=== PATIENT | female | born 1950 | race Caucasian/White ===

== ENCOUNTER 2017-01-18 10:25 | Observation (INO) | payer BC, OTHER ==
[2017-01-18] MEDS ORDERED: NITROGLYCERIN SUBLINGUAL 1/150 0.4 MG TAB SL ONE (11:20)
[2017-01-18] MEDS ORDERED: NITROGLYCERIN 2% OINTMENT - 1GM PACKET TD ONE (11:21)
[2017-01-18] MEDS ORDERED: ACETAMINOPHEN 1000 MG/100 ML VIAL (NON FORMULARY) IVPB ONE (11:22)
--- NOTE | 2017-01-18 11:26 | PDOC ---
History of Present Illness - General History Source: Patient Exam Limitations: No Limitations <Dimitry Ramírez - Last Filed: 01/18/17 12:57> - History of Present Illness Initial Comments: General History Source: Patient Exam Limitations: No Limitations - History of Present Illness Initial Comments: 01/18/17 11:48 The patient is a 66 year old female, with a significant past medical history of left breast CA (1998), HTN, CAD s/p cardiac stents (x2), currently on aspirin and plavix, who presents to the emergency department with chest pain since 9am this morning. She describes her chest pain as a constant heaviness and localized in the midsternal region, ranging from mild to moderate and rating it a 7/10 in severity, without radiation or modifying factors, She reports that she has shortness of breath and nausea associated with her chief complaint. She notes that she took her Aspirin and Plavix today. The patient denies headache and dizziness. Denies fever, chills, vomit, diarrhea and constipation. Denies dysuria, frequency, urgency and hematuria. Allergies: None Past surgical history: Lumpectomy Social history: No alcohol, tobacco or drug use reported PMD - Dr. Aston Noe [employer] [address] Deputy Clerk - Dr. Fairchild <Dimitry Ramírez - Last Filed: 01/18/17 11:49> <Nasrin Pickering - Last Filed: 01/18/17 20:57> - General Chief Complaint: Chest Pain Stated Complaint: CHEST PAIN Time Seen by Provider: 01/18/17 11:08 Past History <Dimitry Ramírez - Last Filed: 01/18/17 12:57> - Past Medical History Anemia: Yes (MANY YRS AGO) Asthma: No Cancer: Yes (LEFT BREAST 1998) Cardiac Disorders: Yes (STENT X2) CVA: No COPD: No CHF: No Dementia: No Diabetes: No GI Disorders: Yes (PREVENTION OF REFLUX) Disorders: No HTN: Yes Hypercholesterolemia: Yes Liver Disease: No Seizures: No Thyroid Disease: No - Surgical History Abdominal Surgery: No Appendectomy: No Cardiac Surgery: Yes (stents.) Cholecystectomy: No Lung Surgery: No Neurologic Surgery: No Orthopedic Surgery: No - Psycho/Social/Smoking Cessation Hx Anxiety: No Suicidal Ideation: No Smoking Status: Yes Smoking History: Never smoked Have you smoked in the past 12 months: No Number of Cigarettes Smoked Daily: 0 Hx Alcohol Use: No Drug/Substance Use Hx: No Substance Use Type: None Hx Substance Use Treatment: No <Nasrin Pickering - Last Filed: 01/18/17 20:57> - Past Medical History Allergies/Adverse Reactions: Allergies Allergy/AdvReac Type Severity Reaction Status Date / Time No Known Allergies Allergy Verified 01/18/17 10:33 Home Medications: Ambulatory Orders Ezetimibe/Simvastatin [Vytorin 10-80 mg Tablet] 1 each PO DAILY 04/22/13 Folic Acid - 1 mg PO DAILY 04/22/13 Metoprolol Succinate [Toprol XL -] 50 mg PO DAILY 04/22/13 Ramipril [Altace] 2.5 mg PO DAILY 04/22/13 Pantoprazole Sodium [Protonix -] 20 mg PO DAILY #0 tablet.ec 04/27/13 Aspirin 81 mg PO DAILY #0 05/19/13 Clopidogrel Bisulfate [Plavix -] 75 mg PO DAILY #0 05/19/13 Oxycodone HCl/Acetaminophen [Percocet 5-325 mg Tablet] 1 - 2 tab PO Q6H #0 tablet 05/19/13 Review of Systems - Review of Systems Able to Perform ROS?: Yes Comments:: 01/18/17 11:49 12 point review of systems is as per history of present illness and otherwise negative ROS All Other Systems: Reviewed and Negative <Dimitry Ramírez - Last Filed: 01/18/17 12:57> *Physical Exam - Vital Signs Last Vital Signs Temp Pulse Resp BP Pulse Ox 97.9 F 81 19 149/81 98 01/18/17 10:33 01/18/17 11:27 01/18/17 10:33 01/18/17 10:33 01/18/17 11:27 <Dimitry Ramírez - Last Filed: 01/18/17 12:57> - Vital Signs Last Vital Signs Temp Pulse Resp BP Pulse Ox 97.9 F 76 19 149/81 100 01/18/17 10:33 01/18/17 10:33 01/18/17 10:33 01/18/17 10:33 01/18/17 10:33 - Physical Exam Comments: 01/18/17 11:22 Physical exam Last Vital Signs Temp Pulse Resp BP Pulse Ox 97.9 F 76 19 149/81 100 01/18/17 10:33 01/18/17 10:33 01/18/17 10:33 01/18/17 10:33 01/18/17 10:33 GENERAL: The patient is awake, alert, and fully oriented, and in no apparent distress. HEAD: Normal with no signs of trauma. EYES: sclera anicteric, conjunctiva are normal. ENT: Moist mucous membranes. NECK: Normal range of motion, supple LUNGS: Breath sounds equal, clear to auscultation bilaterally. No wheezes, and no crackles. HEART: Regular rate and rhythm, normal S1 and S2 without murmur, rub or gallop. ABDOMEN: Soft, nontender, normoactive bowel sounds. No guarding, no rebound. No masses appreciated. EXTREMITIES: Normal range of motion, no edema. No clubbing or cyanosis. No cords, erythema, or tenderness. NEUROLOGICAL: Cranial nerves II through XII grossly intact. Normal speech, normal gait. PSYCH: Normal mood, normal affect. SKIN: Warm, Dry, normal turgor, no rashes or lesions noted. <Nasrin Pickering - Last Filed: 01/18/17 20:57> ED Treatment Course - LABORATORY CBC & Chemistry Diagram: 01/18/17 12:10 01/18/17 12:10 - RADIOLOGY Radiograph Interpretation: 01/18/17 12:19 Chest X-Ray Reviewed by: Dr. Jeffrey Frausto Impression: No acute pathology - Medications Given in the ED: ED Medications Discontinued Medications Generic Name Dose Route Start Last Admin Trade Name Kris PRN Reason Stop Dose Admin Acetaminophen 1,000 mg 01/18/17 11:22 01/18/17 11:41 Ofirmev Injection - IVPB 01/18/17 11:23 1,000 mg ONCE ONE Administration Nitroglycerin 0.4 mg 01/18/17 11:20 01/18/17 11:41 Nitrostat - SL 01/18/17 11:21 0.4 mg ONCE ONE Administration Nitroglycerin 1 inch 01/18/17 11:21 01/18/17 11:41 Nitro-Bid 2% Paste - TD 01/18/17 11:22 1 inch ONCE ONE Administration <Dimitry Ramírez - Last Filed: 01/18/17 12:57> - LABORATORY CBC & Chemistry Diagram: 01/18/17 12:10 01/18/17 12:10 - RADIOLOGY Radiology Studies Ordered: Category Date Time Status CHEST X-RAY PORTABLE* [RAD] Stat Radiology 01/18/17 11:19 Ordered <Nasrin Pickering - Last Filed: 01/18/17 20:57> Medical Decision Making - Medical Decision Making 01/18/17 12:09 Dr. Fairchild was called regarding the patient at 11:20am. Dr. Jenkins covering. Dr. Jenkins was consulted regarding the patient at 11:47am He will come see the patient. [phone] Dr. Aston Noe was called regarding the patient at 12:55pm. Dr. Noe would like the hospitalist to admit his patient. [phone] <DesireeDimitry - Last Filed: 01/18/17 12:57> - Medical Decision Making 01/18/17 11:24 EKG Normal sinus rhythm 81, left axis deviation -6 Normal AV and IV conduction time Normal QTC Nonspecific ST-T waves When compared to the EKG of 04/26/13 Today's EKG is unchanged from the prior EKG. 66-year-old female with known CAD with 2 stents, who did take her aspirin and Plavix this morning Had the onset of chest pain at 9 AM this morning which she describes as heavy midsternal discomfort associated with some shortness of breath and nausea but no diaphoresis She rates her pain is 7 on 10, and it is been constant Pt given SL NTG and NTG paste. also given additional 162 of ASA 01/18/17 12:52 Patient is completely pain-free at this time and resting comfortably Case discussed with Dr. Jenkins, cardiology, covering Dr. Fairchild-will see patient in consultation Laboratory Results - last 24 hr 01/18/17 01/18/17 12:10 12:10 WBC 4.5 RBC 4.39 Hgb 13.3 Hct 39.8 MCV 90.6 MCHC 33.4 RDW 14.9 Plt Count 196 MPV 10.1 Sodium 141 Potassium 5.5 H D Chloride 104 Carbon Dioxide 29 Anion Gap 8 BUN 15 Creatinine 0.6 Creat Clearance w eGFR > 60 Random Glucose 95 D Calcium 9.3 Magnesium 2.0 Total Bilirubin 1.1 H AST 47 H D ALT 45 D Alkaline Phosphatase 97 Troponin I < 0.02 B-Natriuretic Peptide 173.73 H Total Protein 7.3 Albumin 4.1 Lipase 131 Chest x-ray-NAD 01/18/17 12:55 Dr. Noe's service would like the patient admitted to the hospitalist service Place in observation for serial enzymes and further cardiac w/u <Nasrin Pickering - Last Filed: 01/18/17 20:57> *DC/Admit/Observation/Transfer - Attestations Scribe Attestion: 01/18/17 11:49 Documentation prepared by Dimitry Ramírez, acting as medical surgical tech for Nasrin Pickering MD <Dimitry Ramírez - Last Filed: 01/18/17 12:57> - Discharge Dispostion Admit: Yes <Nasrin Pickering - Last Filed: 01/18/17 20:57> Diagnosis at time of Disposition: Chest pain - Referrals
[2017-01-18] MEDS ORDERED: ACETAMINOPHEN INJECTION 100 ML IVPB ONE (11:29)
[2017-01-18] MEDS ORDERED: ASPIRIN 81 MG CHEWABLE TABLETS PO ONE (11:36)
[2017-01-18] MEDS ORDERED: ASPIRIN 81 MG CHEWABLE TABLETS ONE (12:12)
[2017-01-18 12:32] LABS: MCH 30.2 pg (25.7-33.7); MCHC 33.4 g/dl (32.0-36.0); MEAN CELL VOLUME 90.6 fl (80-96); MEAN PLT VOLUME 10.1 fl (7.5-11.1); PLATELET COUNT 196 K/MM3 (134-434); RDW 14.9 % (11.6-15.6); WHITE BLOOD COUNT 4.5 K/mm3 (4.0-10.0)
[2017-01-18 12:39] LABS: ALBUMIN 4.1 g/dl (3.4-5.0); ANION GAP 8 (8-16); BILIRUBIN,TOTAL 1.1 mg/dL (0.2-1.0); CALCIUM 9.3 mg/dL (8.5-10.1); CO2 29 mmol/L (21-32); CREATININE 0.6 mg/dL (0.55-1.02); GLUCOSE,RANDOM 95 mg/dL (74-106); SGPT/ALT 45 U/L (12-78); TOT PROT 7.3 g/dl (6.4-8.2)
[2017-01-18 12:42] LABS: ALK PHOS 97 U/L (45-117); TROPONIN I < 0.02 ng/ml (0.00-0.05)
[2017-01-18 12:45] LABS: SGOT/AST 47 U/L (15-37)
--- NOTE | 2017-01-18 13:08 | PN ---
Teaching Attending Note Name of Resident: Bernabe Cheung ATTENDING PHYSICIAN STATEMENT I saw and evaluated the patient. I reviewed the resident's note and discussed the case with the resident. I agree with the resident's findings and plan as documented. SUBJECTIVE: The patient is a 66 year old female with a significant past medical history of hypertension, hyperlipidemia, coronary artery disease, remote breast cancer, who presented to the ED with five hours of constant chest pain. Initial EKG was non-ischemic. Initial troponin was negative. Chest oain was relieved in the ED after sublingual nitroglycerine and she has bene chest pain free since that time. OBJECTIVE: Vitals noted She does have reproducible chest pain Labs noted ASSESSMENT AND PLAN: -Chest pain HEART score 3, but does have significant risk factors Will JOSE D PE is on the differential Will add d-dimer to ro PE Wells score 0 and my clinical gestalt is that she is very low risk PERC negative other than age Will order TTE Cardiology to follow, consult was called by the ED No anticoagulation for now Detailed plan as per resident
--- NOTE | 2017-01-18 14:08 | CON.CARD ---
Consult Consult Specialty:: Cardiology Referred by:: Dr. Pickering Reason for Consultation:: Chest pain, h/o CAD/PCI of LAD - History of Present Illness Chief Complaint: Chest pain History of Present Illness: 66 yo female with CAD, PCI of LAD in 01/2006, PCI of LAD in-stent restenosis in , HTN, hyperlipidemia, and h/o left breast CA 1998 (lumpectomy, tamoxifen, and radiation). Patient presents to [facility] ED with chest/epigastric pain which began this AM which persisted for~ 4 hours and was relived ~ 30 minutes after getting NTG in ED today. Currently without chest pain. Denies melena, hematochezia, or hematemesis. Patient was last seen in our office by Dr. Fiarchild in 09/2014. Denies any cardiac testing since her last persantine nuclear stress test in 04/2013, which was negative for ischemia. No ischemic ECG changes. 1st trop (-) CXR unremarkable - History Source History Provided By: Patient Limitations to Obtaining History: No Limitations - Past Medical History Cardio/Vascular: Yes: CAD (PCI of LAD 01/2006, PCI of LAD ISR 01/2007), HTN, Hyperlipdemia Gastrointestinal: Yes: Other (Cholecystitis 2012) Additional Medical History: Left breast cancer 1998 (lumpectomy, tamoxifen, radiation) - Past Surgical History Past Surgical History: Yes: Cholecystectomy (04/2013) Additional Surgical History: Tonsillectomy, right shoulder mass resection 2003 - Alcohol/Substance Use Hx Alcohol Use: No History of Substance Use: reports: None - Smoking History Smoking history: Never smoked Have you smoked in the past 12 months: No Aproximately how many cigarettes per day: 0 Home Medications - Allergies Allergies/Adverse Reactions: Allergies Allergy/AdvReac Type Severity Reaction Status Date / Time No Known Allergies Allergy Verified 01/18/17 10:33 - Home Medications Home Medications: Ambulatory Orders Ezetimibe/Simvastatin [Vytorin 10-80 mg Tablet] 1 each PO DAILY 04/22/13 Folic Acid - 1 mg PO DAILY 04/22/13 Metoprolol Succinate [Toprol XL -] 50 mg PO DAILY 04/22/13 Ramipril [Altace] 2.5 mg PO DAILY 04/22/13 Pantoprazole Sodium [Protonix -] 20 mg PO DAILY #0 tablet.ec 07/12/13 Aspirin 81 mg PO DAILY #0 05/19/13 Clopidogrel Bisulfate [Plavix -] 75 mg PO DAILY #0 05/19/13 Oxycodone HCl/Acetaminophen [Percocet 5-325 mg Tablet] 1 - 2 tab PO Q6H #0 tablet 05/19/13 Family Disease History - Family Disease History Family Disease History: Heart Disease: Mother ( fro [place]/cardiac arrest at age 54) Review of Systems - Review of Systems Constitutional: reports: No Symptoms Eyes: reports: No Symptoms HENT: reports: No Symptoms Neck: reports: No Symptoms Cardiovascular: reports: Chest Pain. denies: Edema, Palpitations, Shortness of Breath Respiratory: reports: No Symptoms Gastrointestinal: reports: No Symptoms Genitourinary: reports: No Symptoms Musculoskeletal: reports: No Symptoms Neurological: reports: No Symptoms Endocrine: reports: No Symptoms Hematology/Lymphatic: reports: No Symptoms Psychiatric: reports: No Symptoms Vital Signs: Vital Signs Temperature 97.7 F 01/18/17 12:31 Pulse Rate 64 01/18/17 12:31 Respiratory Rate 18 01/18/17 12:31 Blood Pressure 101/60 01/18/17 12:31 O2 Sat by Pulse Oximetry (%) 100 01/18/17 12:31 Constitutional: Yes: Well Nourished, No Distress Eyes: Yes: Conjunctiva Clear, EOM Intact, PERRL HENT: Yes: Atraumatic, Normocephalic Respiratory: Yes: CTA Bilaterally Gastrointestinal: Yes: Normal Bowel Sounds, Soft. No: Palpable Mass, Tenderness JVD: No Carotid Bruit: No PMI: Non-Displaced Heart Sounds: Yes: S1, S2 Murmur: No: Systolic Murmur Edema: No Peripheral Pulses WNL: Yes Neurological: Yes: Alert, Oriented ...Motor Strength: WNL Psychiatric: Yes: WNL - Other Data 01/18/17 ECG: Sinus with LVH Echo: Report Reviewed (04/24/13 Echo: Normal LV size and systolic function. Trace to mild MR. Mod TR.) Imaging - Results Chest X-ray: Report Reviewed (01/18/17: No acute pulmonary process), Image Reviewed Other: Report Reviewed (05/04/13 Persantinue Myoview: No ischemia, LVEF 69%) Assessment/Plan 66 yo female with CAD, PCI of LAD in 01/2006, PCI of LAD in-stent restenosis in , HTN, hyperlipidemia, and h/o left breast CA 1998 (lumpectomy, tamoxifen, and radiation). Presented to ED with chest/epigastric pain which began this AM which persisted for~ 4 hours and was relived ~ 30 minutes after getting NTG in ED today. Currently without chest pain. Negative persantine nuclear stress test in 04/2013. No ischemic ECG changes. 1st trop (-) CXR unremarkable Suspect that her symptoms may have been GI in nature. However, given her known cardiac history, patient will need to be admitted for observation. RECS: Admit to telemetry for observation. Echocardiogram to assess LV function and structural heart disease. Trend trops. Continue metoprolol succinate 50 mg po daily, statin, aspirin 81 mg po daily, and clopidogrel 75 mg po daily. If patient remains clinically stable and serial trops are negative, patient may be discharged tomorrow with outpatient nuclear stress test in our office. My office will contact the patient to make arrangements. Please call with questions.
--- NOTE | 2017-01-18 14:24 | HP ---
CHIEF COMPLAINT:Chest pain PCP:[facility] HISTORY OF PRESENT ILLNESS: 66F with history of HTN HLD anemia CAD s/p stent x2 on aspirin and plavix states she woke up this morning and had chest pain. She states she also had shortness of breath associated with dizziness and lightheadedness. The chest pain lasted about 3 hours. She denies anything that made it better or worse. 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 She denies nausea vomiting fevers hematuria or dysuria. Denies palpitations or diaphoresis. She endorses chills. She states that ipon presentation to the ED her chest pain resolved and was asking if she could be discharged. She states she has been complaint with her medications. ER course was notable for: (1)Labs (2)CXR EKG (3)Aspirin Nitropaste Recent Travel:Denies PAST MEDICAL HISTORY: Breast cancer Social History: Smoking:Denies Alcohol:Denies Drugs: Denies Family History: Allergies No Known Allergies Allergy (Verified 01/18/17 10:33) HOME MEDICATIONS: Home Medications Medication Instructions Recorded Ezetimibe/Simvastatin [Vytorin 1 each PO DAILY 04/22/13 10-80 mg Tablet] Folic Acid - 1 mg PO DAILY 04/22/13 Metoprolol Succinate [Toprol XL -] 50 mg PO DAILY 04/22/13 Ramipril [Altace] 2.5 mg PO DAILY 04/22/13 Pantoprazole Sodium [Protonix -] 20 mg PO DAILY #0 tablet.ec 04/27/13 Aspirin 81 mg PO DAILY #0 05/19/13 Clopidogrel Bisulfate [Plavix -] 75 mg PO DAILY #0 05/19/13 Oxycodone HCl/Acetaminophen 1 - 2 tab PO Q6H #0 tablet 05/19/13 [Percocet 5-325 mg Tablet] REVIEW OF SYSTEMS CONSTITUTIONAL: Absent: fever, diaphoresis, generalized weakness, malaise, loss of appetite, weight change Present: chills HEENT: Absent: rhinorrhea, nasal congestion, throat pain, throat swelling, difficulty swallowing, mouth swelling, ear pain, eye pain, visual changes CARDIOVASCULAR: Absent: syncope, palpitations, irregular heart rate, peripheral edema Present: chest pain lightheadedness and dizziness RESPIRATORY: Absent: cough, dyspnea with exertion, orthopnea, wheezing, stridor, hemoptysis Present: shortness of breath GASTROINTESTINAL: Absent: abdominal pain, abdominal distension, nausea, vomiting, diarrhea, constipation, melena, hematochezia GENITOURINARY: Absent: dysuria, frequency, urgency, hesitancy, hematuria, flank pain, genital pain MUSCULOSKELETAL: Absent: myalgia, arthralgia, joint swelling, back pain, neck pain SKIN: Absent: rash, itching, pallor HEMATOLOGIC/IMMUNOLOGIC: Absent: easy bleeding, easy bruising, lymphadenopathy, frequent infections ENDOCRINE: Absent: unexplained weight gain, unexplained weight loss, heat intolerance, cold intolerance NEUROLOGIC: Absent: headache, focal weakness or paresthesias, unsteady gait, seizure, mental status changes, bladder or bowel incontinence PSYCHIATRIC: Absent: anxiety, depression, suicidal or homicidal ideation, hallucinations. PHYSICAL EXAMINATION GENERAL: Awake, alert, and fully oriented, in no acute distress. HEAD: Normal with no signs of trauma. EYES: Pupils equal, round and reactive to light, extraocular movements intact, sclera anicteric, conjunctiva clear. EARS, NOSE, THROAT: Moist mucous membranes. NECK: Normal range of motion, supple no JVD, or masses. LUNGS: Breath sounds equal, clear to auscultation bilaterally. No wheezes, and no crackles. No accessory muscle use. HEART: Regular rate and rhythm, normal S1 and S2 without murmur, rub or gallop. Chest tenderness on palpation of the left upper sternal border ABDOMEN: Soft, nontender, not distended, normoactive bowel sounds, no guarding, no rebound MUSCULOSKELETAL: No CVA tenderness. UPPER EXTREMITIES: warm, well-perfused. No peripheral edema. LOWER EXTREMITIES: warm, well-perfused. No calf tenderness. No peripheral edema. NEUROLOGICAL: Cranial nerves II-XII grossly intact. EKG: non ischemic CXR clear Active Medications Generic Name Dose Route Start Last Admin Trade Name Freq PRN Reason Stop Dose Admin Aspirin 81 mg 01/19/17 10:00 Asa - PO DAILY [facility] Atorvastatin Calcium 40 mg 01/18/17 22:00 Lipitor - PO HS [facility] Clopidogrel Bisulfate 75 mg 01/19/17 10:00 Plavix - PO DAILY [facility] Folic Acid 1 mg 01/19/17 10:00 Folic Acid - PO DAILY [facility] Heparin Sodium (Porcine) 5,000 unit 01/18/17 22:00 Heparin - SQ TID FLO Metoprolol Succinate 50 mg 01/19/17 10:00 Toprol Xl - PO DAILY FLO Pantoprazole Sodium 20 mg 01/19/17 10:00 Protonix - PO DAILY FLO ASSESSMENT/PLAN: This is a 66 y/o F with PMHx of HTN, HLD, and CAD who presents to ED with a three hour history of chest pain and SOB. Atypical Chest Pain -R/O MD vs Costochondritis -Place on OBS, serial Cynthia, restart Aspirin and Plavix -Cardiology consult placed -Echo ordered -NSAIDs for possible costochondritis Shortness of Breath -Resolved -Given the history of breast cancer and patient having chest pain along with SOB , will send a D-dimer to r/o PE -Wells score of 0, Perc in CAD -Aspirin and Plavix -Cardiology consult appreciated HTN -Restart Metoprolol -Hold DAVI-I due to patient's hyperkalemia, restart when resolved HLD -Restart home statin Breast cancer -No issues at present time, outpatient f/u FEN -No IV fluids -Hyperkalemia-will repeat BMP at 6pm and treat if needed -Low fat, low sodium diet PPx -Heparin subq, SCDs for DVT -Protonix for GI -No PT consult needed at this time, will assess the need for physical therapy on a regular basis Dispo: D/C tomorrow Case discussed with attending, Dr. Cortez Visit type - Emergency Visit Emergency Visit: Yes ED Registration Date: 01/18/17 Care time: The patient presented to the Emergency Department on the above date and was hospitalized for further evaluation of their emergent condition. - New Patient This patient is new to me today: Yes Date on this admission: 01/18/17 - Critical Care Critical Care patient: No
[2017-01-18] MEDS ORDERED: HYDROmorphone HCL CARPU-JECT 1 MG/1 ML DISP.SYRIN IVPUSH ONE (15:44)
[2017-01-18] MEDS ORDERED: HYDROmorphone HCL CARPU-JECT 1 MG/1 ML DISP.SYRIN ONE (16:09)
--- NOTE | 2017-01-18 17:30 | EKG ---
Test Reason : Blood Pressure : / mmHG Vent. Rate : 081 BPM Atrial Rate : 081 BPM P-R Int : 140 ms QRS Dur : 080 ms QT Int : 388 ms P-R-T Axes : 051 -06 017 degrees QTc Int : 450 ms NORMAL SINUS RHYTHM MODERATE VOLTAGE CRITERIA FOR LVH, MAY BE NORMAL VARIANT BORDERLINE ECG WHEN COMPARED WITH ECG OF 26-APR-2013 10:03, T WAVE VARIATION Confirmed by MICHAEL SCHAEFFER, LAWRENCE ([id number]) on 01/18/2017 5:30:09 PM Referred By: Confirmed By:LAWRENCE RODRIGUEZ MD
[2017-01-18 21:17] LABS: ANION GAP 8 (8-16); CALCIUM 8.6 mg/dL (8.5-10.1); CO2 26 mmol/L (21-32); CREATININE 0.6 mg/dL (0.55-1.02); GLUCOSE,RANDOM 119 mg/dL (74-106)
[2017-01-18 21:30] LABS: TROPONIN I < 0.02 ng/ml (0.00-0.05)
[2017-01-18] MEDS ORDERED: diphenhydrAMINE HCL 25 MG CAPSULE (FP) PO ONE (21:59)
[2017-01-18] MEDS ORDERED: morphine CARPU-JECT 2 MG/1 ML DISP.SYRIN IVPUSH ONE (21:59)
[2017-01-18] MEDS ORDERED: ATORVASTATIN CA 40 MG TABLET (FP) PO SCH (22:00)
[2017-01-18] MEDS ORDERED: morphine CARPU-JECT 2 MG/1 ML DISP.SYRIN ONE (22:11)
[2017-01-18] MEDS: HEPARIN NA (PORCINE) 5,000 UNITS/ML 1ML VIAL SQ SCH (22:14)
[2017-01-18] MEDS: NAPROXEN 500 MG TABLET (FP) PO SCH (22:24)
[2017-01-19] MEDS: HEPARIN NA (PORCINE) 5,000 UNITS/ML 1ML VIAL SQ SCH ×3 (06:40→14:43)
[2017-01-19 08:01] LABS: MCH 30.2 pg (25.7-33.7); MCHC 33.1 g/dl (32.0-36.0); MEAN CELL VOLUME 91.2 fl (80-96); MEAN PLT VOLUME 9.8 fl (7.5-11.1); PLATELET COUNT 141 K/MM3 (134-434); RDW 14.5 % (11.6-15.6); WHITE BLOOD COUNT 4.9 K/mm3 (4.0-10.0)
[2017-01-19] MEDS: NAPROXEN 500 MG TABLET (FP) PO SCH ×2 (08:16→10:36)
[2017-01-19 08:19] LABS: CALCIUM 8.5 mg/dL (8.5-10.1); CREATININE 0.6 mg/dL (0.55-1.02)
[2017-01-19] MEDS ORDERED: FOLIC ACID 1 MG TABLET (FP) PO SCH (10:00)
[2017-01-19] MEDS ORDERED: RAMIPRIL 2.5 MG CAPSULE (FP) PO SCH (10:00)
[2017-01-19] MEDS ORDERED: METOPROLOL SUCCINATE 50 MG TAB.SR.24H (FP) PO SCH (10:00)
[2017-01-19] MEDS ORDERED: PANTOPRAZOLE 20 MG TABLET (FP) PO SCH (10:00)
[2017-01-19] MEDS ORDERED: ASPIRIN 81 MG CHEWABLE TABLETS PO SCH (10:00)
[2017-01-19] MEDS ORDERED: CLOPIDOGREL BISULFATE 75 MG TABLET (FP) PO SCH (10:00)
[2017-01-19 13:22] VITALS: PULSE 63; TEMP 98.2
[2017-01-19 14:21] VITALS: BP 107/65
[2017-01-19] MEDS ORDERED: POLYETHYLENE GLYCOL 3350 119 GM BTL PO ONE (14:34)
--- NOTE | 2017-01-19 14:42 | DS ---
Physical Exam: SUBJECTIVE: Patient seen and examined at bedside wants to go home asymptomatic denies chest pain or shortness of breath at this time OBJECTIVE: Vital Signs Period Temp Pulse Resp BP Sys/Barry Pulse Ox Last 24 Hr 97.8 F-98.2 F 59-78 18-20 95-147/64-80 98-100 PHYSICAL EXAM GENERAL: Awake, alert, and fully oriented, in no acute distress. HEAD: Normal with no signs of trauma. EYES: Pupils equal, round and reactive to light, extraocular movements intact, sclera anicteric, conjunctiva clear. EARS, NOSE, THROAT: Moist mucous membranes. NECK: Normal range of motion, supple no JVD, or masses. LUNGS: Breath sounds equal, clear to auscultation bilaterally. No wheezes, and no crackles. No accessory muscle use. HEART: Regular rate and rhythm, normal S1 and S2 without murmur, rub or gallop. Chest tenderness on palpation of the left upper sternal border ABDOMEN: Soft, nontender, not distended, normoactive bowel sounds, no guarding, no rebound MUSCULOSKELETAL: No CVA tenderness. UPPER EXTREMITIES: warm, well-perfused. No peripheral edema. LOWER EXTREMITIES: warm, well-perfused. No calf tenderness. No peripheral edema. NEUROLOGICAL: Cranial nerves II-XII grossly intact. LABS Laboratory Results - last 24 hr 01/18/17 01/18/17 01/19/17 19:15 20:35 05:35 WBC 4.9 RBC 4.16 Hgb 12.6 Hct 38.0 MCV 91.2 MCHC 33.1 RDW 14.5 Plt Count 141 D MPV 9.8 Sodium Cancelled 143 Potassium Cancelled 3.8 D Chloride Cancelled 109 H Carbon Dioxide Cancelled 26 Anion Gap Cancelled 8 BUN Cancelled 15 Creatinine Cancelled 0.6 Random Glucose Cancelled 119 H D Calcium Cancelled 8.6 Creatine Kinase Cancelled 179 D Troponin I Cancelled < 0.02 01/19/17 01/19/17 05:35 05:35 WBC RBC Hgb Hct MCV MCHC RDW Plt Count MPV Sodium 146 H Potassium 4.1 Chloride 112 H Carbon Dioxide 25 Anion Gap 9 BUN 19 H D Creatinine 0.6 Random Glucose 84 D Calcium 8.5 Creatine Kinase Troponin I < 0.02 HOSPITAL COURSE: Date of Admission:01/18/17 Date of Discharge: 01/19/17 66F with history fo HTN HLD CAD s/p stent x2 on Aspirin and plavix presented to the ED yesterday with chest pain and shortness of breath for 3 hours. placed on telemtry for cardiac monitoring. Worked up for [place] cardiac enzymes negative x3. EKG non ischemic. Also worked up to rule out PE with D Dimer which was negative. Seen by cardiology and cleared for discharge with follow up for outpatient stress test. no arrhythmias on telemtry monitoring overnight. patient had significant chest wall tenderness and her atypical chest pain presentation is likely due to costochondritis. Minutes to complete discharge: 45 Discharge Summary Reason For Visit: CHEST PAIN Current Active Problems Atypical chest pain (Acute) Chest pain (Acute) Costochondritis (Acute) Hyperkalemia (Acute) CAD (coronary artery disease) (Chronic) Hyperlipidemia (Chronic) Hypertension (Chronic) Condition: Improved - Instructions Diet, Activity, Other Instructions: eat a low sodium low fat diet continue your home medications follow up with cardiology for an outpatient stress test follow up with your primary care doctor take over the counter aleve/naproxen 250mg twice a day for 4-5 days take the nexium you have at home with the naproxen if you have symptoms again go to the nearest emergency room Referrals: Aston Noe MD [Primary Care Provider] - 1 Week Juan Jenkins MD [Staff Physician] - 1 Week Disposition: HOME - Home Medications Comprehensive Discharge Medication List: Ambulatory Orders Ezetimibe/Simvastatin [Vytorin 10-80 mg Tablet] 1 each PO DAILY 04/22/13 Folic Acid - 1 mg PO DAILY 04/22/13 Metoprolol Succinate [Toprol XL -] 50 mg PO DAILY 04/22/13 Ramipril [Altace] 2.5 mg PO DAILY 04/22/13 Pantoprazole Sodium [Protonix -] 20 mg PO DAILY #0 tablet.ec 04/27/13 Aspirin 81 mg PO DAILY #0 05/19/13 Clopidogrel Bisulfate [Plavix -] 75 mg PO DAILY #0 05/19/13 Oxycodone HCl/Acetaminophen [Percocet 5-325 mg Tablet] 1 - 2 tab PO Q6H #0 tablet 05/19/13 Naproxen [Naprosyn -] 250 mg PO BID #10 tablet 01/19/17 This patient is new to me today: No Emergency Visit: Yes ED Registration Date: 01/18/17 Care time: The patient presented to the Emergency Department on the above date and was hospitalized for further evaluation of their emergent condition. Critical Care patient: No - Discharge Referral Referred to [facility] No
--- NOTE | 2017-01-19 15:27 | PN ---
Teaching Attending Note Name of Resident: Bernabe Cheung ATTENDING PHYSICIAN STATEMENT I saw and evaluated the patient. I reviewed the resident's note and discussed the case with the resident. I agree with the resident's findings and plan as documented. SUBJECTIVE: L sided chest pain is much better no SOB or fever OBJECTIVE: NAD CV : RRR Lungs : CTAB ext : no edema TTP over L sided chest wall ext : no edema ASSESSMENT AND PLAN: 66 y/o lady who presented with chest pain 1- atypical CP , likely due to chostoconderitis . aleve at dc , with nexium out pt stress echo reviewed. 2- slight hypernatremia . po hydration dc home
== END 2017-01-19 15:13 | disposition home or self-care (01) ==
LOC: JER 10:25 → UNDOADMOB 12:56 → JERBED 12:56 → INTOOBSV 12:56 → JERBED 14:01 → J4W 21:40
PROVIDERS: ADMIT Internal Medicine; ATTEND Internal Medicine
PROC: 3E033NZ Introduction of Analgesics, Hypnotics, Sedatives into Peripheral Vein, Percutaneous Approach (ICD-10-PCS; principal; 2017-01-18)
PROC: 3E033GC Introduction of Other Therapeutic Substance into Peripheral Vein, Percutaneous Approach (ICD-10-PCS; 2017-01-18)
DX: R07.89 Other chest pain (principal); I10 Essential (primary) hypertension; I25.10 Atherosclerotic heart disease of native coronary artery without angina pectoris; Z95.5 Presence of coronary angioplasty implant and graft; Z79.82 Long term (current) use of aspirin; Z79.01 Long term (current) use of anticoagulants; Z85.3 Personal history of malignant neoplasm of breast; Z86.2 Personal history of diseases of the blood and blood-forming organs and certain disorders involving the immune mechanism; K21.9 Gastro-esophageal reflux disease without esophagitis; E78.5 Hyperlipidemia, unspecified; E87.0 Hyperosmolality and hypernatremia; M94.0 Chondrocostal junction syndrome [Tietze]
CPT/HCPCS: 36415; 71010-TC; 80048; 80053; 82550; 82553; 83690; 83735; 83880; 84484; 85027; 85379; 93005; 93010; 93306-TC; 99285-25; G0378; J1644

== ENCOUNTER 2018-09-21 12:56 | Observation (INO) | payer OTHER ==
--- NOTE | 2018-09-21 13:16 | PDOC ---
Attending Attestation - Resident Resident Name: Brea Lima - HPI HPI: 09/21/18 14:20 Pt presents to the Ed complaining of the acute onset of severe RLQ abdominal pain. Denies fever or urinary complaints. + vomiting x 1. Denies diarrhea. also complains of non productive cough. 09/21/18 14:42 09/21/18 15:12 - Physicial Exam PE: 09/21/18 14:47 Agree with reisdent exam. Patient is alert and appears uncomfortable. Abdomen is diffusely tender, worse in the RLQ. 09/21/18 15:13 - Medical Decision Making 09/21/18 15:13 Pt presents to the ED complaining of nausea, vomiting and RLQ abdominal pain. Initial concern for diverticulitis vs appendicitis, less likely nephrolithiasis or UTI. CT shows RLL consolidation, without evidence of diverticulitis or appendicitis. Will treat with zithromax and ceftriaxone for PNA and admit for observation.
[2018-09-21] MEDS ORDERED: ONDANSETRON 4 MG/2 ML VIAL IVPB ONE ×2 (13:22→14:38)
[2018-09-21] MEDS ORDERED: morphine CARPU-JECT 4 MG/1 ML DISP.SYRIN IVPUSH ONE ×2 (13:22→14:09)
[2018-09-21] MEDS ORDERED: SODIUM CHLORIDE 1,000 ML IV STA ×2 (13:22→14:51)
--- NOTE | 2018-09-21 13:36 | PDOC ---
History of Present Illness - General Chief Complaint: Pain, Acute Stated Complaint: RIGHT ABD PAIN Time Seen by Provider: 09/21/18 13:12 History Source: Patient Exam Limitations: No Limitations - History of Present Illness Initial Comments: 09/21/18 13:33 Pt is a 68yo F with PMH of CAD s/p stent, HTN, HLD, cholecystecomy presenting to ED with complaints of R sided abdominal pain that started suddenly at 7am today. Pt said pain is on the R side of her abdomen radiates to the R back. , cannot describe the pain, has been constant. She endorses nausea and one episode of nbnb emesis. She has not had pain like this before. She tried taking 2 Advil at 10am which did not help. She denies chest pain, SOB, fevers, chills, weakness, numbness, tingling, diarrhea, constipation, blood in stools, urinary symptoms. Last BM was this morning. PMD: PMH: see hpi PSH: cholecystectomy Meds: see med rec Allergies: nkda Past History - Past Medical History Allergies/Adverse Reactions: Allergies Allergy/AdvReac Type Severity Reaction Status Date / Time No Known Allergies Allergy Verified 09/21/18 12:57 Home Medications: Ambulatory Orders Metoprolol Succinate [Toprol XL -] 50 mg PO DAILY 04/22/13 Ramipril [Altace] 2.5 mg PO DAILY 04/22/13 Aspirin 81 mg PO DAILY #0 05/19/13 Clopidogrel Bisulfate [Plavix -] 75 mg PO DAILY #0 05/19/13 Atorvastatin Ca [Lipitor] 80 mg PO HS 09/21/18 Anemia: Yes (MANY YRS AGO) Asthma: No Cancer: Yes (LEFT BREAST 1998) Cardiac Disorders: Yes (STENT X2) CVA: No COPD: No CHF: No Dementia: No Diabetes: No GI Disorders: Yes (PREVENTION OF REFLUX) Disorders: No HTN: Yes Hypercholesterolemia: Yes Liver Disease: No Seizures: No Thyroid Disease: No - Surgical History Abdominal Surgery: No Appendectomy: No Cardiac Surgery: Yes (stents.) Cholecystectomy: No Lung Surgery: No Neurologic Surgery: No Orthopedic Surgery: No - Suicide/Smoking/Psychosocial Hx Smoking Status: Yes Smoking History: Never smoked Have you smoked in the past 12 months: No Number of Cigarettes Smoked Daily: 0 Hx Alcohol Use: No Drug/Substance Use Hx: No Substance Use Type: None Hx Substance Use Treatment: No Review of Systems - Review of Systems Constitutional: No: Chills, Fever, Loss of Appetite HEENTM: No: Symptoms Reported Respiratory: No: Cough, Shortness of Breath, Hemoptysis Cardiac (ROS): No: Chest Pain, Lightheadedness, Palpitations, Syncope ABD/GI: Yes: See HPI, Nausea, Vomiting, Abdominal cramping. No: Constipated, Diarrhea, Rectal Bleeding, Tarry Stools : No: Symptoms Reported Musculoskeletal: Yes: See HPI, Back Pain. No: Joint Pain, Neck Pain Integumentary: No: Symptoms Reported Neurological: No: Symptoms reported *Physical Exam - Vital Signs Last Vital Signs Temp Pulse Resp BP Pulse Ox 98.6 F 60 17 158/80 100 09/21/18 12:57 09/21/18 12:57 09/21/18 12:57 09/21/18 12:57 09/21/18 12:57 - Physical Exam General Appearance: Yes: Nourished, Appropriately Dressed, Moderate Distress HEENT: positive: EOMI, PRESTON, Normal ENT Inspection Neck: positive: Trachea midline, Supple Respiratory/Chest: positive: Lungs Clear, Normal Breath Sounds. negative: Crackles, Rales, Rhonchi, Stridor, Wheezing Cardiovascular: positive: Regular Rhythm, Regular Rate, S1, S2. negative: Edema , JVD, Murmur Vascular Pulses: Carotid (R): 2+, Carotid (L): 2+, Dorsalis-Pedis (R): 2+, Doralis-Pedis (L): 2+ Gastrointestinal/Abdominal: positive: Normal Bowel Sounds, Soft, Tenderness ( RLQ.>RUQ). negative: Pulsatile Mass, Distended, Guarding, Rebound Musculoskeletal: negative: CVA Tenderness Extremity: positive: Normal Capillary Refill. negative: Pedal Edema, Swelling Integumentary: positive: Normal Color, Dry, Warm Neurologic: positive: stitchdowns toe former II-XII NML intact, Fully Oriented, Alert, Normal Mood/ Affect, Normal Response, Motor Strength 5/5 Moderate Sedation - Procedure Monitoring Vital Signs: Procedure Monitoring Vital Signs Temperature 98.6 F 09/21/18 12:57 Pulse Rate 60 09/21/18 12:57 Respiratory Rate 17 09/21/18 12:57 Blood Pressure 158/80 09/21/18 12:57 O2 Sat by Pulse Oximetry (%) 100 09/21/18 12:57 ED Treatment Course - LABORATORY CBC & Chemistry Diagram: 09/21/18 13:33 09/21/18 13:33 Medical Decision Making - Medical Decision Making 09/21/18 13:33 Pt is a 68yo F with PMH of CAD s/p stent, HTN, HLD, cholecystecomy presenting to ED with complaints of R sided abdominal pain that started suddenly at 7am today. Pt said pain is on the R side of her abdomen radiates to the R back. , cannot describe the pain, has been constant. She endorses nausea and one episode of nbnb emesis. She has not had pain like this before. She tried taking 2 Advil at 10am which did not help. She denies chest pain, SOB, fevers, chills, weakness, numbness, tingling, diarrhea, constipation, blood in stools, urinary symptoms. Last BM was this morning. Vitals: wnl PE: RLQ tenderness, no rebound. negative rosving and psoas. R CVA tenderness DDx includes but not limited to appendicitis, pancreatitis, colitis, nephrolithiasis, pyelonephritis, AAA, CBC, cmp, lactate, lipase, ua, ucx, CT with contrast ordered. EKG Will give IVF, morphine 2mg and zofran for nausea. Pt still in pain, given 4 morphine. Still feeling nauseous, given 4 more zofran. Pt actively vomiting in ED. Will give [address] shows small area of R lower lobe consolidation. 3mm stone in R kidney. No other pathology. -Started pt on ceftriaxone and azithromycin. All other labs wnl. UA shows blood with RBC. Most likely from passed stone. Pt is pain controlled but unable to tolerate PO. Will be admitted obs for pna and vomiting/pain control. *DC/Admit/Observation/Transfer Diagnosis at time of Disposition: Nausea PNA (pneumonia) Qualifiers: Pneumonia type: due to unspecified organism Laterality: right Lung location: lower lobe of lung Qualified Code(s): J18.1 - Lobar pneumonia, unspecified organism Hematuria Qualifiers: Hematuria type: unspecified type Qualified Code(s): R31.9 - Hematuria, unspecified Abdominal pain Qualifiers: Abdominal location: right lower quadrant Qualified Code(s): R10.31 - Right lower quadrant pain Vomiting Qualifiers: Vomiting type: unspecified Vomiting Intractability: non-intractable Nausea presence: with nausea Qualified Code(s): R11.2 - Nausea with vomiting, unspecified - Discharge Dispostion Condition at time of disposition: Good Decision to Admit order: Yes - Referrals - Patient Instructions - Post Discharge Activity
[2018-09-21] MEDS ORDERED: ONDANSETRON 4 MG/2 ML VIAL ONE ×2 (13:37→14:46)
[2018-09-21] MEDS ORDERED: morphine SULFATE 4 MG/ML VIAL ONE ×2 (13:37→14:04)
[2018-09-21 14:01] LABS: ALBUMIN 4.1 g/dl (3.5-5.0); ALK PHOS 100 U/L (32-92); ANION GAP 8 MMOL/L (8-16); BILIRUBIN,TOTAL 0.9 mg/dl (0.2-1.0); BLOOD UREA NITROGEN 23 mg/dl (7-18); CALCIUM 9.1 mg/dl (8.4-10.2); CHLORIDE 105 mmol/L (98-107); CO2 24 mmol/L (22-28); CREATININE 0.7 mg/dl (0.6-1.3); GLUCOSE,RANDOM 118 mg/dl (74-106); POTASSIUM 4.6 mmol/L (3.5-5.1); SGOT/AST 31 U/L (10-42); SGPT/ALT 31 U/L (10-40); SODIUM 137 mmol/L (136-145); TOT PROT 7.1 g/dl (6.4-8.3)
[2018-09-21 14:08] LABS: BASO % 0.2 % (0-2.0); EOS % 0.5 % (0-4.5); HEMATOCRIT 39.1 % (32.4-45.2); HEMOGLOBIN 12.8 GM/dl (10.7-15.3); LYMPH % 34.3 % (8-40); MCH 30.5 pg (25.7-33.7); MCHC 32.7 g/dl (32.0-36.0); MEAN CELL VOLUME 93.4 fl (80-96); MEAN PLT VOLUME 8.9 fl (7.5-11.1); MONO % 6.5 % (3.8-10.2); NEUT % 58.5 % (42.8-82.8); PLATELET COUNT 242 K/MM3 (134-434); RBC 4.18 M/mm3 (3.60-5.2); RDW 13.6 % (11.6-15.6); WHITE BLOOD COUNT 7.5 K/mm3 (4.0-10.8)
[2018-09-21 14:09] LABS: URINE APPEARANCE Clear; URINE BILIRUBIN Negative (NEGATIVE); URINE COLOR Yellow; URINE GLUCOSE (UA) Negative (NEGATIVE); URINE KETONE Negative (NEGATIVE); URINE LEUK ESTERASE Negative (NEGATIVE); URINE NITRITE Negative (NEGATIVE); URINE PROTEIN Trace (NEGATIVE); URINE UROBILINOGEN 0.2 (0.2-1.0)
[2018-09-21 14:34] LABS: ACTIVATED PTT 24.8 SECONDS (25.2-36.5)
[2018-09-21 14:37] LABS: URINE RBC 20-40 /hpf (0-3)
[2018-09-21 14:38] LABS: EPI CELLS 2+ /HPF; URINE MUCUS 2+
[2018-09-21 14:38] LABS: INR 1.11 (0.82-1.09); PROTHROMBIN TIME (PATIENT) 12.4 SEC (10.2-13.0)
[2018-09-21 14:43] LABS: URINE BACTERIA 2+ /hpf (NEGATIVE)
[2018-09-21] MEDS ORDERED: CEFTRIAXONE 1 GM in DEXTROSE 5%-WATER - 100 ML IVPB ONE (15:03)
[2018-09-21 15:04] LABS: N-TERMINAL BNP 114.3 pg/ml (5-125)
[2018-09-21] MEDS ORDERED: METOCLOPRAMIDE HCL INJECTION 10 MG/2 ML VIAL IVPUSH ONE (15:10)
[2018-09-21] MEDS ORDERED: METOCLOPRAMIDE HCL INJECTION 10 MG/2 ML VIAL ONE (15:11)
[2018-09-21] MEDS ORDERED: cefTRIAXone SODIUM 1 GM VIAL ONE (15:18)
[2018-09-21] MEDS ORDERED: AZITHROMYCIN 500 MG VIAL IVPB ONE (15:18)
[2018-09-21] MEDS: AZITHROMYCIN IVPB 500 MG in DEXTROSE 5%-WATER - 250 ML IVPB ONE ×2 (15:20→15:55)
--- NOTE | 2018-09-21 16:01 | HP ---
CHIEF COMPLAINT: Abdominal pain PCP: Dr. Noe HISTORY OF PRESENT ILLNESS: This is a 68-year-old female with HTN, HLD, left breast ca s/p lumpectomy and CAD s/p stents who presented to the ED today with sudden onset of RLQ pain and nausea/vomiting at 7a today. She denies constipation/diarrhea, fevers/chills, dysuria, and hematurio. She does report 2- 3 weeks of cough productive of fritz/green sputum prior to this episode. 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 Smoking: Quit 35 yrs ago Alcohol: Rarely Drugs: None Allergies No Known Allergies Allergy (Verified 09/21/18 12:57) HOME MEDICATIONS: Home Medications Medication Instructions Recorded Metoprolol Succinate [Toprol XL -] 50 mg PO DAILY 04/22/13 Ramipril [Altace] 2.5 mg PO DAILY 04/22/13 Aspirin 81 mg PO DAILY #0 05/19/13 Clopidogrel Bisulfate [Plavix -] 75 mg PO DAILY #0 05/19/13 Atorvastatin Ca [Lipitor] 80 mg PO HS 09/21/18 REVIEW OF SYSTEMS CONSTITUTIONAL: Absent: fever, chills, diaphoresis, generalized weakness, malaise, loss of appetite, weight change HEENT: Absent: rhinorrhea, nasal congestion, throat pain, throat swelling, difficulty swallowing, mouth swelling, ear pain, eye pain, visual changes CARDIOVASCULAR: Absent: chest pain, syncope, palpitations, irregular heart rate, lightheadedness , peripheral edema RESPIRATORY: Cough productive of green/fritz sputum x 2-3 wks Absent: shortness of breath, dyspnea with exertion, orthopnea, wheezing, stridor , hemoptysis GASTROINTESTINAL: RLQ pain, vomiting Absent: diarrhea, constipation, melena, hematochezia GENITOURINARY: Absent: dysuria, frequency, urgency, hesitancy, hematuria, flank pain, genital pain MUSCULOSKELETAL: Absent: myalgia, arthralgia, joint swelling, back pain, neck pain SKIN: Absent: rash, itching, pallor HEMATOLOGIC/IMMUNOLOGIC: Absent: easy bleeding, easy bruising, lymphadenopathy, frequent infections ENDOCRINE: Absent: unexplained weight gain, unexplained weight loss, heat intolerance, cold intolerance NEUROLOGIC: Absent: headache, focal weakness or paresthesias, dizziness, unsteady gait, seizure, mental status changes, bladder or bowel incontinence PSYCHIATRIC: Absent: anxiety, depression, suicidal or homicidal ideation, hallucinations. PHYSICAL EXAMINATION Vital Signs - 24 hr 09/21/18 12:57 Temperature 98.6 F Pulse Rate 60 Respiratory 17 Rate Blood Pressure 158/80 O2 Sat by Pulse 100 Oximetry (%) GENERAL: Awake, alert, and fully oriented, in no acute distress. HEAD: Normal with no signs of trauma. EYES: Pupils equal, round and reactive to light, extraocular movements intact, sclera anicteric, conjunctiva clear. No lid lag. EARS, NOSE, THROAT: Ears normal, nares patent, oropharynx clear without exudates. Moist mucous membranes. NECK: Normal range of motion, supple without lymphadenopathy, JVD, or masses. LUNGS: Breath sounds equal, clear to auscultation bilaterally. No wheezes, and no crackles. No accessory muscle use. HEART: Regular rate and rhythm, normal S1 and S2 without murmur, rub or gallop. ABDOMEN: Soft, tender in RLQ and right CVA, not distended, normoactive bowel sounds, no guarding, no rebound, no masses. No hepatomegaly or splenomegaly. MUSCULOSKELETAL: Normal range of motion at all joints. No bony deformities or tenderness. No CVA tenderness. UPPER EXTREMITIES: 2+ pulses, warm, well-perfused. No cyanosis. No clubbing. No peripheral edema. LOWER EXTREMITIES: 2+ pulses, warm, well-perfused. No calf tenderness. No peripheral edema. NEUROLOGICAL: Cranial nerves II-XII intact. Normal speech. Gait not observed. PSYCHIATRIC: Cooperative. Good eye contact. Appropriate mood and affect. SKIN: Warm, dry, normal turgor, no rashes or lesions noted, normal capillary refill. Laboratory Results - last 24 hr 09/21/18 09/21/18 09/21/18 13:15 13:15 13:33 WBC 7.5 RBC 4.18 Hgb 12.8 Hct 39.1 MCV 93.4 MCH 30.5 MCHC 32.7 RDW 13.6 Plt Count 242 MPV 8.9 Absolute Neuts (auto) 4.4 Neutrophils % 58.5 Lymphocytes % 34.3 Monocytes % 6.5 Eosinophils % 0.5 Basophils % 0.2 PT with INR INR PTT (Actin FS) Sodium Potassium Chloride Carbon Dioxide Anion Gap BUN Creatinine Creat Clearance w eGFR Random Glucose Lactic Acid Calcium Total Bilirubin AST ALT Alkaline Phosphatase Troponin I B-Natriuretic Peptide Total Protein Albumin Lipase 197 Urine Color Yellow Urine Appearance Clear Urine pH 7.0 Ur Specific [place] 1.025 Urine Protein Trace Urine Glucose (UA) Negative Urine Ketones Negative Urine Blood 3+ H Urine Nitrite Negative Urine Bilirubin Negative Urine Urobilinogen 0.2 Ur Leukocyte Esterase Negative Urine RBC 20-40 Urine WBC 2-5 Ur Epithelial Cells 2+ Urine Bacteria 2+ Urine Mucus 2+ 09/21/18 09/21/18 09/21/18 13:33 13:33 13:33 WBC RBC Hgb Hct MCV MCH MCHC RDW Plt Count MPV Absolute Neuts (auto) Neutrophils % Lymphocytes % Monocytes % Eosinophils % Basophils % PT with INR 12.4 INR 1.11 PTT (Actin FS) 24.8 L Sodium 137 Potassium 4.6 Chloride 105 Carbon Dioxide 24 Anion Gap 8 BUN 23 H Creatinine 0.7 Creat Clearance w eGFR > 60 Random Glucose 118 H Lactic Acid Calcium 9.1 Total Bilirubin 0.9 AST 31 D ALT 31 D Alkaline Phosphatase 100 H Troponin I < 0.03 B-Natriuretic Peptide 114.3 Total Protein 7.1 Albumin 4.1 Lipase Urine Color Urine Appearance Urine pH Ur Specific [place] Urine Protein Urine Glucose (UA) Urine Ketones Urine Blood Urine Nitrite Urine Bilirubin Urine Urobilinogen Ur Leukocyte Esterase Urine RBC Urine WBC Ur Epithelial Cells Urine Bacteria Urine Mucus 09/21/18 13:33 WBC RBC Hgb Hct MCV MCH MCHC RDW Plt Count MPV Absolute Neuts (auto) Neutrophils % Lymphocytes % Monocytes % Eosinophils % Basophils % PT with INR INR PTT (Actin FS) Sodium Potassium Chloride Carbon Dioxide Anion Gap BUN Creatinine Creat Clearance w eGFR Random Glucose Lactic Acid 1.5 Calcium Total Bilirubin AST ALT Alkaline Phosphatase Troponin I B-Natriuretic Peptide Total Protein Albumin Lipase Urine Color Urine Appearance Urine pH Ur Specific [place] Urine Protein Urine Glucose (UA) Urine Ketones Urine Blood Urine Nitrite Urine Bilirubin Urine Urobilinogen Ur Leukocyte Esterase Urine RBC Urine WBC Ur Epithelial Cells Urine Bacteria Urine Mucus ASSESSMENT/PLAN: 68-year-old female with RLQ pain, likely secondary to passed ureteral calculus, and CAP. Problem List - Problem (1) Abdominal pain Assessment/Plan: -Suspect secondary to passed ureteral calculus with microscopic hematuria, stone within kidney on CT, and improving pain -Toradol 15mg q6h prn pain -Serial abdominal exams Code(s): R10.9 - UNSPECIFIED ABDOMINAL PAIN Qualifiers: Abdominal location: right lower quadrant Qualified Code(s): R10.31 - Right lower quadrant pain (2) Vomiting Assessment/Plan: -Unrelieved by Zofran 4mg IVPB x 2 doses and Reglan 10mg IVPB x 1 -Ativan 0.5mg IVP x 1 -Continue Zofran 4mg q6h prn Code(s): R11.10 - VOMITING, UNSPECIFIED Qualifiers: Vomiting type: unspecified Vomiting Intractability: non-intractable Nausea presence: with nausea Qualified Code(s): R11.2 - Nausea with vomiting, unspecified (3) Community acquired pneumonia Assessment/Plan: -Ceftriaxone 1g IVPB and azithromycin 500mg IVPB given in ED -Continue Ceftriaxone 1g, azithro 250mg daily Code(s): J18.9 - PNEUMONIA, UNSPECIFIED ORGANISM (4) CAD (coronary artery disease) Assessment/Plan: -Continue BB, statin, Plavix, ASA Code(s): I25.10 - ATHSCL HEART DISEASE OF [place] CORONARY ARTERY W/O ANG PCTRS (5) Hyperlipidemia Assessment/Plan: -Continue home atorvastatin 80mg hs Code(s): E78.5 - HYPERLIPIDEMIA, UNSPECIFIED (6) Hypertension Assessment/Plan: -Slightly above goal -Continue Toprol XL 50mg daily, Altace 2.5mg daily -Re-assess when pain is controlled Code(s): I10 - ESSENTIAL (PRIMARY) HYPERTENSION (7) DVT prophylaxis Assessment/Plan: -Low risk -Early ambulation Code(s): [id number] - Visit type - Emergency Visit Emergency Visit: Yes Care time: The patient presented to the Emergency Department on the above date and was hospitalized for further evaluation of their emergent condition. - New Patient This patient is new to me today: Yes Date on this admission: 09/21/18 - Critical Care Critical Care patient: No
[2018-09-21] MEDS ORDERED: KETOROLAC TROMETHAMINE 15 MG/ML VIAL IVPUSH PRN (16:25)
[2018-09-21] MEDS ORDERED: LORazepam 2 MG/ML SDV VIAL IVPUSH ONE (16:32)
[2018-09-21] MEDS ORDERED: diphenhydrAMINE HCL 25 MG CAPSULE (FP) PO PRN ×3 (16:38→22:00)
[2018-09-21] MEDS ORDERED: SODIUM CHLORIDE 1,000 ML IV SCH (16:45)
[2018-09-21 17:09] VITALS: BMI 29.0
[2018-09-21] MEDS ORDERED: ONDANSETRON 4 MG/2 ML VIAL IVPUSH PRN (18:00)
[2018-09-21] MEDS ORDERED: MELATONIN 5 MG TABLETS PO ONE (23:15)
[2018-09-22 06:32] VITALS: BP 96/53; PULSE 59; TEMP 97.7
[2018-09-22 08:23] LABS: BASO % 0.4 % (0-2.0); EOS % 0.7 % (0-4.5); HEMATOCRIT 34.3 % (32.4-45.2); HEMOGLOBIN 11.2 GM/dl (10.7-15.3); LYMPH % 41.3 % (8-40); MCH 30.5 pg (25.7-33.7); MCHC 32.5 g/dl (32.0-36.0); MEAN CELL VOLUME 93.6 fl (80-96); MEAN PLT VOLUME 9.3 fl (7.5-11.1); MONO % 9.4 % (3.8-10.2); NEUT % 48.2 % (42.8-82.8); PLATELET COUNT 199 K/MM3 (134-434); RBC 3.67 M/mm3 (3.60-5.2); RDW 13.7 % (11.6-15.6); WHITE BLOOD COUNT 6.5 K/mm3 (4.0-10.8)
[2018-09-22 08:31] LABS: ALBUMIN 3.1 g/dl (3.5-5.0); ALK PHOS 78 U/L (32-92); ANION GAP 6 MMOL/L (8-16); BILIRUBIN,TOTAL 1.1 mg/dl (0.2-1.0); BLOOD UREA NITROGEN 13 mg/dl (7-18); CALCIUM 8.3 mg/dl (8.4-10.2); CHLORIDE 111 mmol/L (98-107); CO2 24 mmol/L (22-28); CREATININE 0.6 mg/dl (0.6-1.3); GLUCOSE,RANDOM 97 mg/dl (74-106); MAGNESIUM 1.8 mg/dL (1.8-2.4); POTASSIUM 4.3 mmol/L (3.5-5.1); SGOT/AST 26 U/L (10-42); SGPT/ALT 24 U/L (10-40); SODIUM 141 mmol/L (136-145); TOT PROT 5.5 g/dl (6.4-8.3)
--- NOTE | 2018-09-22 09:12 | DS ---
Physical Exam: SUBJECTIVE: Patient seen and examined. Feeling better, abdominal pain and nausea resolved. OBJECTIVE: Vital Signs Period Temp Pulse Resp BP Sys/Barry Pulse Ox Last 24 Hr 97.4 F-98.6 F 55-65 16-20 96-158/52-80 95-100 PHYSICAL EXAM GENERAL: The patient is awake, alert, and fully oriented, in no acute distress. HEAD: Normal with no signs of trauma. EYES: PERRL, extraocular movements intact, sclera anicteric, conjunctiva clear. ENT: Ears normal, nares patent, oropharynx clear without exudates, moist mucous membranes. NECK: Trachea midline, full range of motion, supple. LUNGS: Breath sounds equal, clear to auscultation bilaterally, no wheezes, no crackles, no accessory muscle use. HEART: Regular rate and rhythm, S1, S2 without murmur, rub or gallop. ABDOMEN: Soft, nontender, nondistended, normoactive bowel sounds, no guarding, no rebound, no hepatosplenomegaly, no masses. EXTREMITIES: 2+ pulses, warm, well-perfused, no edema. NEUROLOGICAL: Cranial nerves II through XII grossly intact. Normal speech, gait not observed. PSYCH: Normal mood, normal affect. SKIN: Warm, dry, normal turgor, no rashes or lesions noted. LABS Laboratory Results - last 24 hr 09/21/18 09/21/18 09/21/18 13:15 13:15 13:33 WBC 7.5 RBC 4.18 Hgb 12.8 Hct 39.1 MCV 93.4 MCH 30.5 MCHC 32.7 RDW 13.6 Plt Count 242 MPV 8.9 Absolute Neuts (auto) 4.4 Neutrophils % 58.5 Lymphocytes % 34.3 Monocytes % 6.5 Eosinophils % 0.5 Basophils % 0.2 PT with INR INR PTT (Actin FS) Sodium Potassium Chloride Carbon Dioxide Anion Gap BUN Creatinine Creat Clearance w eGFR Random Glucose Lactic Acid Calcium Total Bilirubin AST ALT Alkaline Phosphatase Troponin I B-Natriuretic Peptide Total Protein Albumin Lipase 197 Urine Color Yellow Urine Appearance Clear Urine pH 7.0 Ur Specific [place] 1.025 Urine Protein Trace Urine Glucose (UA) Negative Urine Ketones Negative Urine Blood 3+ H Urine Nitrite Negative Urine Bilirubin Negative Urine Urobilinogen 0.2 Ur Leukocyte Esterase Negative Urine RBC 20-40 Urine WBC 2-5 Ur Epithelial Cells 2+ Urine Bacteria 2+ Urine Mucus 2+ 09/21/18 09/21/18 09/21/18 13:33 13:33 13:33 WBC RBC Hgb Hct MCV MCH MCHC RDW Plt Count MPV Absolute Neuts (auto) Neutrophils % Lymphocytes % Monocytes % Eosinophils % Basophils % PT with INR 12.4 INR 1.11 PTT (Actin FS) 24.8 L Sodium 137 Potassium 4.6 Chloride 105 Carbon Dioxide 24 Anion Gap 8 BUN 23 H Creatinine 0.7 Creat Clearance w eGFR > 60 Random Glucose 118 H Lactic Acid Calcium 9.1 Total Bilirubin 0.9 AST 31 D ALT 31 D Alkaline Phosphatase 100 H Troponin I < 0.03 B-Natriuretic Peptide 114.3 Total Protein 7.1 Albumin 4.1 Lipase Urine Color Urine Appearance Urine pH Ur Specific [place] Urine Protein Urine Glucose (UA) Urine Ketones Urine Blood Urine Nitrite Urine Bilirubin Urine Urobilinogen Ur Leukocyte Esterase Urine RBC Urine WBC Ur Epithelial Cells Urine Bacteria Urine Mucus 09/21/18 13:33 WBC RBC Hgb Hct MCV MCH MCHC RDW Plt Count MPV Absolute Neuts (auto) Neutrophils % Lymphocytes % Monocytes % Eosinophils % Basophils % PT with INR INR PTT (Actin FS) Sodium Potassium Chloride Carbon Dioxide Anion Gap BUN Creatinine Creat Clearance w eGFR Random Glucose Lactic Acid 1.5 Calcium Total Bilirubin AST ALT Alkaline Phosphatase Troponin I B-Natriuretic Peptide Total Protein Albumin Lipase Urine Color Urine Appearance Urine pH Ur Specific [place] Urine Protein Urine Glucose (UA) Urine Ketones Urine Blood Urine Nitrite Urine Bilirubin Urine Urobilinogen Ur Leukocyte Esterase Urine RBC Urine WBC Ur Epithelial Cells Urine Bacteria Urine Mucus HOSPITAL COURSE: This is a 68-year-old female with HTN, HLD, left breast ca s/p lumpectomy and CAD s/p stents who presented to the ED yesterday with sudden onset of RLQ pain and nausea/vomiting. Vomiting was initially difficult to control requiring multiple rounds of medications, as well as morphine for pain control. CTAP revealed nonobstructing 3mm calculus within right kidney, UA with microscopic hematuria likely representing passed stone. Pain and nausea resolved. A RLL consolidation was incidentally noted; patient reports 2-3 weeks of cough with purulent phlem. She was started on Ceftriaxone/Azithromycin and will be discharged on doxycycline for CAP. Followup instructions and return precautions reviewed with the patient. Date of Admission:09/21/18 Date of Discharge: 09/22/18 Minutes to complete discharge: 45 Discharge Summary Reason For Visit: DX PNEUMONIA, VOMITING, ABD PAIN Current Active Problems Abdominal pain (Acute) Community acquired pneumonia (Acute) DVT prophylaxis (Acute) Hematuria (Acute) Nausea (Acute) PNA (pneumonia) (Acute) Vomiting (Acute) Condition: Improved - Instructions Diet, Activity, Other Instructions: -Rest and stay well-hydrated -Take doxycycline twice daily for 7 days as prescribed -Take with food as it may cause stomach upset, but avoid milk products which can interfere with absorption -Follow up with Dr Noe -Return for new abdominal pain, for fever, or for any other concerning symptoms Referrals: Aston Noe MD [Staff Physician] - Disposition: HOME - Home Medications Comprehensive Discharge Medication List: Ambulatory Orders Metoprolol Succinate [Toprol XL -] 50 mg PO DAILY 04/22/13 Ramipril [Altace] 2.5 mg PO DAILY 04/22/13 Aspirin 81 mg PO DAILY #0 05/19/13 Clopidogrel Bisulfate [Plavix -] 75 mg PO DAILY #0 05/19/13 Atorvastatin Ca [Lipitor] 80 mg PO HS 09/21/18 Problem List - Problems (1) Abdominal pain Code(s): R10.9 - UNSPECIFIED ABDOMINAL PAIN Qualifiers: Abdominal location: right lower quadrant Qualified Code(s): R10.31 - Right lower quadrant pain (2) Vomiting Code(s): R11.10 - VOMITING, UNSPECIFIED Qualifiers: Vomiting type: unspecified Vomiting Intractability: non-intractable Nausea presence: with nausea Qualified Code(s): R11.2 - Nausea with vomiting, unspecified (3) Community acquired pneumonia Code(s): J18.9 - PNEUMONIA, UNSPECIFIED ORGANISM (4) CAD (coronary artery disease) Code(s): I25.10 - ATHSCL HEART DISEASE OF [place] CORONARY ARTERY W/O ANG PCTRS (5) Hyperlipidemia Code(s): E78.5 - HYPERLIPIDEMIA, UNSPECIFIED (6) Hypertension Code(s): I10 - ESSENTIAL (PRIMARY) HYPERTENSION (7) DVT prophylaxis Code(s): YAE1119 - This patient is new to me today: No Emergency Visit: Yes ED Registration Date: 09/21/18 Care time: The patient presented to the Emergency Department on the above date and was hospitalized for further evaluation of their emergent condition. Critical Care patient: No - Discharge Referral Referred to [facility] Med P.C.: No
[2018-09-22] MEDS ORDERED: CEFTRIAXONE 1 G/50 ML PREMIX 50 ML IVPB SCH (10:00)
[2018-09-22] MEDS ORDERED: AZITHROMYCIN IVPB 500 MG/250 ML BAG IVPB SCH (10:00)
--- NOTE | 2018-09-22 11:38 | EKG ---
Test Reason : Blood Pressure : / mmHG Vent. Rate : 063 BPM Atrial Rate : 063 BPM P-R Int : 146 ms QRS Dur : 078 ms QT Int : 426 ms P-R-T Axes : 043 -05 -03 degrees QTc Int : 435 ms NORMAL SINUS RHYTHM VOLTAGE CRITERIA FOR LEFT VENTRICULAR HYPERTROPHY NONSPECIFIC ST AND T WAVE ABNORMALITY ABNORMAL ECG WHEN COMPARED WITH ECG OF 18-JAN-2017 10:31, NO SIGNIFICANT CHANGE WAS FOUND Confirmed by MONI SCHAEFFER, NALLELY ([id number]) on 09/22/2018 11:38:07 AM Referred By: DR BARLOW Confirmed By:NALLELY MONTENEGRO MD
== END 2018-09-22 13:30 | disposition home or self-care (01) ==
LOC: FER 12:56 → FM/S 15:05 → UNDOADMOB 16:26
PROVIDERS: ADMIT Hospitalist; ATTEND Registered Nurse Emergency
PROC: 3E03329 Introduction of Other Anti-infective into Peripheral Vein, Percutaneous Approach (ICD-10-PCS; principal; 2018-09-21)
PROC: 3E03329 Introduction of Other Anti-infective into Peripheral Vein, Percutaneous Approach (ICD-10-PCS; 2018-09-21)
PROC: 3E03329 Introduction of Other Anti-infective into Peripheral Vein, Percutaneous Approach (ICD-10-PCS; 2018-09-21)
PROC: 3E03329 Introduction of Other Anti-infective into Peripheral Vein, Percutaneous Approach (ICD-10-PCS; 2018-09-21)
PROC: 3E033NZ Introduction of Analgesics, Hypnotics, Sedatives into Peripheral Vein, Percutaneous Approach (ICD-10-PCS; 2018-09-21)
PROC: 3E033GC Introduction of Other Therapeutic Substance into Peripheral Vein, Percutaneous Approach (ICD-10-PCS; 2018-09-21)
PROC: 3E033GC Introduction of Other Therapeutic Substance into Peripheral Vein, Percutaneous Approach (ICD-10-PCS; 2018-09-21)
DX: J18.9 Pneumonia, unspecified organism (principal); N20.0 Calculus of kidney; R10.9 Unspecified abdominal pain; R31.9 Hematuria, unspecified; R11.2 Nausea with vomiting, unspecified; I25.10 Atherosclerotic heart disease of native coronary artery without angina pectoris; I10 Essential (primary) hypertension; Z95.5 Presence of coronary angioplasty implant and graft; E78.5 Hyperlipidemia, unspecified; Z85.3 Personal history of malignant neoplasm of breast; Z86.2 Personal history of diseases of the blood and blood-forming organs and certain disorders involving the immune mechanism; Z90.49 Acquired absence of other specified parts of digestive tract
CPT/HCPCS: 36415; 71046-TC-FY; 74177-TC; 80053; 81003; 81015; 83605; 83690; 83735; 83880; 84484; 85025; 85610; 85730; 87086; 93005; 99285-25; G0378; J7030

== ENCOUNTER → 2023-02-01 | Day surgery (SDC) | payer OTHER | END | disposition home or self-care (01) | LOC: FMAMMOTONE 09:59 | PROVIDERS: ATTEND Family Medicine | PROC: 0HBU3ZX Excision of Left Breast, Percutaneous Approach, Diagnostic (ICD-10-PCS; principal; 2023-02-01) | DX: D05.12 Intraductal carcinoma in situ of left breast (principal); Z17.0 Estrogen receptor positive status [ER+]; N64.89 Other specified disorders of breast; R92.0 Mammographic microcalcification found on diagnostic imaging of breast | CPT/HCPCS: 19081; 76098-TC-FY; 87899; 88305-TC; A4648 ==